=== PATIENT | female | born 1995 | race African-American/Black ===

== ENCOUNTER 2017-09-04 18:41 | Emergency (ER) | payer MEDICAID ==
[~2017-09-04] VITALS: Ht 157.5 cm; Wt 50.8 kg
[~2017-09-04 18:41] MED LIST: AMOXICILLIN875 MG PO; BACTRIM DS TAB1 EACH PO; BACTROBAN CREAM30 G1 TOP; IBUPROFEN 800800 M1 PO; LABETALOL HCL100 MG PO; NOHOMEMEDICATIONS; TRINATE TABLET1 TAB PO
[2017-09-04 20:48] LABS: URINE BILIRUBIN NEGATIVE (Negative); URINE BLOOD NEGATIVE (Negative); URINE CLARITY SL CLOUDY; URINE COLOR YELLOW; URINE GLUCOSE-RANDOM NEGATIVE (Negative); URINE KETONES NEGATIVE (Negative); URINE LEUKOCYTES 1+ (Negative); URINE NITRITE NEGATIVE (Negative); URINE PROTEIN TRACE (Negative); URINE SPECIFIC GRAVITY >= 1.030 (1.005-1.030)
[2017-09-04 20:53] LABS: MUCUS 4-6 Moderate strn/LPF (None Seen); SQUAMOUS >10 Many /LPF (0-3)
[2017-09-04 20:54] LABS: CASTS None Seen /LPF (None Seen); CRYSTALS None Seen /LPF (None Seen); URINE RBC 3-10 Few /HPF (0-2); URINE WBC >25 Many /HPF (0-5)
[2017-09-04 21:10] LABS: HEMOGLOBIN 10.9 gm/dL (12.0-15.0); RBC 3.87 mil/uL (4.20-5.00)
[2017-09-04 21:11] LABS: ABSOLUTE EOSINOPHILS 0.2 thou/uL (0.0-0.7); ABSOLUTE LYMPHOCYTES 1.5 thou/uL (0.8-5.3); ABSOLUTE MONOCYTES 0.7 thou/uL (0.0-1.2); BASOPHILS 0.3 %; EOSINOPHILS 1.4 %; HEMATOCRIT 32.9 % (37.0-47.0); LYMPHOCYTES 10.2 %; MCH 28.2 pg (26.0-34.0); MCHC 33.2 g/dL (28.0-37.0); MONOCYTES 4.7 %; NUCLEATED RBCS 0 /100WBC; PLATELET COUNT* 332 thou/uL (150-400); POLYS 83.4 %; RDW-CV 13.7 % (10.5-14.5); WBC 14.4 thou/uL (4.0-11.0)
[2017-09-04 21:17] LABS: CALCIUM 8.7 mg/dL (8.5-10.1); CREATININE 0.9 mg/dL (0.6-1.3); POTASSIUM 3.3 mmol/L (3.5-5.1)
[2017-09-04 21:21] LABS: ALBUMIN 3.2 g/dL (3.4-5.0); TOTAL BILIRUBIN 0.5 mg/dL (<0.1-1.0); TOTAL PROTEIN 8.2 g/dL (6.4-8.2)
[2017-09-04] MEDS ORDERED: CIPRO500 MG PO (22:50)
[2017-09-04] MEDS ORDERED: TRAMADOL 50 MG50 MG PO (22:50)
[2017-09-04] MEDS ORDERED: LOPERAMIDE 2 MG2 M1 PO (22:50)
[2017-09-04 23:18] VITALS: BP 113/77
== END 2017-09-04 23:22 | disposition home or self-care (01) ==
LOC: M.ERS 18:41
PROVIDERS: Physician Assistant
DX: N30.01 Acute cystitis with hematuria (principal); K52.9 Noninfective gastroenteritis and colitis, unspecified; I10 Essential (primary) hypertension; F10.99 Alcohol use, unspecified with unspecified alcohol-induced disorder; Z98.890 Other specified postprocedural states

== ENCOUNTER 2017-09-22 17:30 | Emergency (ER) | payer MEDICAID ==
[~2017-09-22] VITALS: Ht 157.5 cm; Wt 51.7 kg
[~2017-09-22 17:30] MED LIST changes: +CIPRO500 MG PO; +LOPERAMIDE 2 MG2 M1 PO; +TRAMADOL 50 MG50 MG PO
[2017-09-22 18:00] LABS: URINE BILIRUBIN NEGATIVE (Negative); URINE BLOOD NEGATIVE (Negative); URINE CLARITY CLEAR; URINE COLOR YELLOW; URINE GLUCOSE-RANDOM NEGATIVE (Negative); URINE KETONES NEGATIVE (Negative); URINE LEUKOCYTES 2+ (Negative); URINE NITRITE NEGATIVE (Negative); URINE PROTEIN NEGATIVE (Negative); URINE UROBILINOGEN 0.2 E.U./dl (0.2-1.0)
[2017-09-22 18:06] LABS: ABSOLUTE BASOPHILS 0.1 thou/uL (0.0-0.2); ABSOLUTE EOSINOPHILS 0.6 thou/uL (0.0-0.7); ABSOLUTE LYMPHOCYTES 1.8 thou/uL (0.8-5.3); ABSOLUTE MONOCYTES 0.7 thou/uL (0.0-1.2); ABSOLUTE NEUTROPHILS 6.1 thou/uL (1.6-8.1); BASOPHILS 0.6 %; EOSINOPHILS 6.7 %; HEMATOCRIT 37.7 % (37.0-47.0); HEMOGLOBIN 12.5 gm/dL (12.0-15.0); LYMPHOCYTES 19.9 %; MCH 28.1 pg (26.0-34.0); MCV 85.2 fL (80.0-100.0); MONOCYTES 7.2 %; MPV 8.7 fl. (7.2-11.1); NUCLEATED RBCS 0 /100WBC; PLATELET COUNT* 308 thou/uL (150-400); POLYS 65.6 %; RBC 4.43 mil/uL (4.20-5.00); RDW-CV 14.4 % (10.5-14.5); WBC 9.3 thou/uL (4.0-11.0)
[2017-09-22 18:08] LABS: MUCUS 0-3 Light strn/LPF (None Seen); SQUAMOUS >10 Many /LPF (0-3)
[2017-09-22 18:09] LABS: BACTERIA 1-9 Few /HPF (None Seen); CRYSTALS None Seen /LPF (None Seen)
[2017-09-22 18:10] LABS: CASTS None Seen /LPF (None Seen); URINE RBC None Seen /HPF (0-2)
[2017-09-22 18:12] LABS: CREATININE 0.7 mg/dL (0.6-1.3); POTASSIUM 3.9 mmol/L (3.5-5.1)
[2017-09-22 18:16] LABS: ALBUMIN 3.6 g/dL (3.4-5.0); TOTAL BILIRUBIN 0.4 mg/dL (<0.1-1.0); TOTAL PROTEIN 8.3 g/dL (6.4-8.2)
[2017-09-22] MEDS ORDERED: FLAGYL500 MG PO (18:42)
[2017-09-22] MEDS ORDERED: BACTRIM DS TAB1 EACH PO ×2 (18:42→19:05)
[2017-09-22 18:56] LABS: INFLUENZA A ANTIGEN None Detected (None Detect); INFLUENZA B ANTIGEN None Detected (None Detect)
[2017-09-22 19:11] VITALS: BP 119/58
== END 2017-09-22 19:11 | disposition home or self-care (01) ==
LOC: M.ERS 17:30
PROVIDERS: Nurse Practitioner Family; Physician Assistant
DX: N39.0 Urinary tract infection, site not specified (principal); N76.0 Acute vaginitis; B96.89 Other specified bacterial agents as the cause of diseases classified elsewhere

== ENCOUNTER 2017-10-23 17:58 | Emergency (ER) | payer MEDICAID ==
[~2017-10-23] VITALS: Ht 157.5 cm; Wt 49.9 kg
[~2017-10-23 17:58] MED LIST changes: +FLAGYL500 MG PO
[2017-10-23 18:23] LABS: URINE BILIRUBIN NEGATIVE (Negative); URINE BLOOD TRACE (Negative); URINE CLARITY CLEAR; URINE COLOR YELLOW; URINE GLUCOSE-RANDOM NEGATIVE (Negative); URINE KETONES NEGATIVE (Negative); URINE LEUKOCYTES-REFLEX 1+ (Negative); URINE NITRITE-REFLEX NEGATIVE (Negative); URINE PROTEIN NEGATIVE (Negative); URINE UROBILINOGEN 0.2 E.U./dl (0.2-1.0)
[2017-10-23 18:33] LABS: CASTS None Seen /LPF (None Seen); CRYSTALS None Seen /LPF (None Seen); MUCUS 0-3 Light strn/LPF (None Seen); SQUAMOUS >10 Many /LPF (0-3)
[2017-10-23 18:34] LABS: BACTERIA-REFLEX 1-9 Few /HPF (None Seen); URINE RBC 0-2 Rare /HPF (0-2); URINE WBC-REFLEX 6-15 Few /HPF (0-5); WBC CLUMPS Few (None Seen)
[2017-10-23] MEDS ORDERED: FLAGYL500 MG PO (18:39)
[2017-10-23 18:46] VITALS: BP 108/77
== END 2017-10-23 18:46 | disposition home or self-care (01) ==
LOC: M.ERS 17:58
PROVIDERS: Physician Assistant
DX: N89.8 Other specified noninflammatory disorders of vagina (principal); Z20.2 Contact with and (suspected) exposure to infections with a predominantly sexual mode of transmission

== ENCOUNTER 2018-06-03 12:36 | Emergency (ER) | payer OTHER, MEDICAID ==
[~2018-06-03] VITALS: Ht 157.5 cm; Wt 52.2 kg
[2018-06-03] MEDS ORDERED: GENTAMICIN OPH3.5 G1 OPHTHALMIC (14:15)
[2018-06-03 14:23] VITALS: BP 102/73
== END 2018-06-03 14:23 | disposition home or self-care (01) ==
LOC: M.ERS 12:36
DX: H10.12 Acute atopic conjunctivitis, left eye (principal)

== ENCOUNTER 2018-06-15 13:13 | Emergency (ER) | payer OTHER, MEDICAID ==
[~2018-06-15] VITALS: Ht 160 cm; Wt 45.4 kg
[~2018-06-15 13:13] MED LIST changes: +GENTAMICIN OPH3.5 G1 OPHTHALMIC
[2018-06-15 13:36] VITALS: BP 107/58
[2018-06-15] MEDS ORDERED: LISINOPRIL5 MG PO (13:39)
[2018-06-15] MEDS ORDERED: IRON325 PO (13:39)
[2018-06-15] MEDS ORDERED: NORCO 5-325 TA1 EACH PO (13:39)
== END 2018-06-15 13:58 | disposition home or self-care (01) ==
LOC: M.ERS 13:13
DX: M25.551 Pain in right hip (principal); I10 Essential (primary) hypertension

== ENCOUNTER 2018-12-24 09:18 | Emergency (ER) | payer OTHER, MEDICAID ==
[~2018-12-24] VITALS: Ht 167.6 cm; Wt 65.8 kg
[~2018-12-24 09:18] MED LIST changes: +IRON325 PO; +LISINOPRIL5 MG PO; +NORCO 5-325 TA1 EACH PO
[2018-12-24] MEDS ORDERED: AUGMENTIN 875-1 EACH PO (10:12)
[2018-12-24 10:20] VITALS: BP 101/69
== END 2018-12-24 10:21 | disposition home or self-care (01) ==
LOC: M.ERS 09:18
DX: J02.9 Acute pharyngitis, unspecified (principal); I10 Essential (primary) hypertension; Z86.2 Personal history of diseases of the blood and blood-forming organs and certain disorders involving the immune mechanism

== ENCOUNTER 2019-01-27 21:48 | Emergency (ER) | payer OTHER ==
[~2019-01-27] VITALS: Ht 157.5 cm; Wt 61.2 kg
[~2019-01-27 21:48] MED LIST changes: +AUGMENTIN 875-1 EACH PO
[2019-01-27 22:38] LABS: ABSOLUTE LYMPHOCYTES 1.6 thou/uL (0.8-5.3); ABSOLUTE MONOCYTES 1.3 thou/uL (0.0-1.2); ABSOLUTE NEUTROPHILS 7.4 thou/uL (1.6-8.1); BASOPHILS 0.3 %; EOSINOPHILS 0.1 %; HEMOGLOBIN 12.1 gm/dL (12.0-15.0); LYMPHOCYTES 15.7 %; MCH 27.8 pg (26.0-34.0); MCHC 33.5 g/dL (28.0-37.0); MONOCYTES 12.3 %; MPV 8.6 fl. (7.2-11.1); NUCLEATED RBCS 0 /100WBC; PLATELET COUNT* 234 thou/uL (150-400); POLYS 71.6 %; RBC 4.34 mil/uL (4.20-5.00); RDW-CV 14.7 % (10.5-14.5); WBC 10.3 thou/uL (4.0-11.0)
[2019-01-27 22:39] LABS: URINE BLOOD 3+ (Negative); URINE CLARITY CLOUDY; URINE COLOR BROWN; URINE GLUCOSE-RANDOM NEGATIVE (Negative); URINE LEUKOCYTES-REFLEX TRACE (Negative); URINE PROTEIN 2+ (Negative); URINE SPECIFIC GRAVITY 1.025 (1.005-1.030); URINE UROBILINOGEN 0.2 E.U./dl (0.2-1.0)
[2019-01-27 22:42] LABS: URINE BILIRUBIN 1+ (Negative); URINE KETONES 3+ (Negative); URINE NITRITE-REFLEX POSITIVE (Negative)
[2019-01-27 22:45] LABS: ACETEST (KETONE CONFIRMATORY) Large (Negative); ICTOTEST (BILI CONFIRMATORY) Positive (Negative)
[2019-01-27 22:46] LABS: CALCIUM 8.7 mg/dL (8.5-10.1); CREATININE 0.9 mg/dL (0.6-1.3); POTASSIUM 3.6 mmol/L (3.5-5.1)
[2019-01-27 22:50] LABS: CASTS None Seen /LPF (None Seen); MUCUS 4-6 Moderate strn/LPF (None Seen); SQUAMOUS >10 Many /LPF (0-3); URINE RBC >20 Many /HPF (0-2); URINE WBC-REFLEX 6-15 Few /HPF (0-5)
[2019-01-27 22:51] LABS: ALBUMIN 3.4 g/dL (3.4-5.0); TOTAL BILIRUBIN 0.6 mg/dL (<0.1-1.0); TOTAL PROTEIN 8.3 g/dL (6.4-8.2)
[2019-01-27 22:51] LABS: BACTERIA-REFLEX >30 Many /HPF (None Seen); CRYSTALS None Seen /LPF (None Seen)
[2019-01-28] MEDS ORDERED: IBUPROFEN 800800 M1 PO (02:27)
[2019-01-28] MEDS ORDERED: NORCO 5-325 TA1 EACH PO (02:27)
[2019-01-28] MEDS ORDERED: AUGMENTIN 500-1 EACH PO (02:27)
[2019-01-28 02:53] VITALS: BP 97/54
== END 2019-01-28 02:54 | disposition home or self-care (01) ==
LOC: M.ERS 21:48
PROVIDERS: Physician Assistant
DX: N12 Tubulo-interstitial nephritis, not specified as acute or chronic (principal); N39.0 Urinary tract infection, site not specified; N93.9 Abnormal uterine and vaginal bleeding, unspecified; I10 Essential (primary) hypertension; Z86.2 Personal history of diseases of the blood and blood-forming organs and certain disorders involving the immune mechanism

== ENCOUNTER 2020-12-29 09:01 | Emergency (ER) | payer OTHER, MEDICAID ==
[~2020-12-29] VITALS: Ht 157.5 cm; Wt 54.4 kg
[~2020-12-29 09:01] MED LIST changes: +AUGMENTIN 500-1 EACH PO
[2020-12-29] MEDS ORDERED: BIRTH CONTROL (09:17)
[2020-12-29] MEDS ORDERED: CEPHALEXIN500 MG PO ×2 (09:32→09:33)
[2020-12-29 09:45] VITALS: BP 103/72
== END 2020-12-29 09:47 | disposition home or self-care (01) ==
LOC: M.ERS 09:01
DX: L03.116 Cellulitis of left lower limb (principal); I10 Essential (primary) hypertension; Z86.2 Personal history of diseases of the blood and blood-forming organs and certain disorders involving the immune mechanism

== ENCOUNTER 2021-01-04 08:42 | Emergency (ER) | payer OTHER, MEDICAID ==
[~2021-01-04] VITALS: Ht 157.5 cm; Wt 56.7 kg
[~2021-01-04 08:42] MED LIST changes: +BIRTH CONTROL; +CEPHALEXIN500 MG PO
[2021-01-04] MEDS ORDERED: BACTRIM DS TAB1 EACH PO (08:59)
[2021-01-04 09:11] VITALS: BP 123/58
== END 2021-01-04 09:11 | disposition home or self-care (01) ==
LOC: M.ERS 08:42
DX: S70.322A Blister (nonthermal), left thigh, initial encounter (principal); L03.116 Cellulitis of left lower limb; I10 Essential (primary) hypertension; Z98.890 Other specified postprocedural states; Z79.2 Long term (current) use of antibiotics; X58.XXXA Exposure to other specified factors, initial encounter; Y93.89 Activity, other specified; Y92.89 Other specified places as the place of occurrence of the external cause; Y99.8 Other external cause status

== ENCOUNTER 2021-01-31 10:14 | Emergency (ER) | payer OTHER, MEDICAID ==
[~2021-01-31] VITALS: Ht 157.5 cm; Wt 56.7 kg
[2021-01-31] MEDS ORDERED: CEPHALEXIN500 MG PO (10:55)
[2021-01-31 11:00] VITALS: BP 114/68
== END 2021-01-31 11:01 | disposition home or self-care (01) ==
LOC: M.ERS 10:14
DX: L03.116 Cellulitis of left lower limb (principal); I10 Essential (primary) hypertension; Z98.890 Other specified postprocedural states

== ENCOUNTER 2021-07-12 12:24 | Emergency (ER) | payer OTHER, MEDICAID ==
[~2021-07-12] VITALS: Ht 160 cm; Wt 54.4 kg
[2021-07-12 12:41] VITALS: BP 101/72
[2021-07-12] MEDS ORDERED: VITAMIN D325 MC3 PO (12:43)
[2021-07-12] MEDS ORDERED: IRON18 M1 PO (12:43)
[2021-07-12 12:45] LABS: URINE BILIRUBIN NEGATIVE (Negative); URINE BLOOD TRACE (Negative); URINE CLARITY CLEAR; URINE COLOR YELLOW; URINE GLUCOSE-RANDOM NEGATIVE (Negative); URINE KETONES NEGATIVE (Negative); URINE LEUKOCYTES-REFLEX NEGATIVE (Negative); URINE NITRITE-REFLEX POSITIVE (Negative); URINE PROTEIN NEGATIVE (Negative); URINE UROBILINOGEN 0.2 E.U./dl (0.2-1.0)
[2021-07-12 12:50] LABS: SQUAMOUS 4-10 Moderate /LPF (0-3); URINE RBC 0-2 Rare /HPF (0-2)
[2021-07-12 12:51] LABS: BACTERIA-REFLEX >30 Many /HPF (None Seen); CASTS None Seen /LPF (None Seen); CRYSTALS None Seen /LPF (None Seen); MUCUS None Seen strn/LPF (None Seen)
[2021-07-12] MEDS ORDERED: MACROBID 100 M100 M1 PO (12:54)
[2021-07-12] MEDS ORDERED: PYRIDIUM200 MG PO (12:54)
== END 2021-07-12 13:06 | disposition home or self-care (01) ==
LOC: M.ERS 12:24
PROVIDERS: Family Medicine
DX: N39.0 Urinary tract infection, site not specified (principal); I10 Essential (primary) hypertension; Z79.899 Other long term (current) drug therapy